=== PATIENT | female | born 1995 | race Caucasian/White ===

== ENCOUNTER → 2017-09-10 | Outpatient (CLI) | payer BC ==
--- NOTE | 2017-09-10 17:23 | REP ---
Thyroid sonography: History: Nodules on thyroid. Findings: Thyroid isthmus is 0.2 cm thick. Right lobe dimensions by ultrasound are 4.6 x 1.6 x 1.3 cm. The left thyroid lobe measures 4.0 x 1.5 x 0.8 cm. No extrathyroidal mass or cyst is seen. No intrathyroid nodule is seen. There are two tiny cysts in the upper pole on the left. These measure 1 mm. Impression: Negative thyroid sonography. Signed by Celso Jerez MD 09/10/2017 05:30 P
== END ==
LOC: M RAD 14:20
PROVIDERS: ATTEND Physician Assistant Medical
DX: E04.1 Nontoxic single thyroid nodule (principal)

== ENCOUNTER → 2018-11-29 | Outpatient (REF) | payer BC ==
[2018-11-29 15:21] LABS: CHLAMYDIA DNA AMPLIFICATION NEGATIVE (NEGATIVE); GC DNA AMPLIFICATION NEGATIVE (NEGATIVE)
== END ==
LOC: M SFHCWAGY 11:47
PROVIDERS: ATTEND Nurse Practitioner Women's Health
DX: Z12.4 Encounter for screening for malignant neoplasm of cervix (principal)
CPT/HCPCS: 87491; 87591; G0123

== ENCOUNTER → 2020-10-08 | Outpatient (REF) | payer BC | LOC: M SFHCWAGY 17:12 | PROVIDERS: ATTEND Nurse Practitioner Women's Health | DX: Z11.3 Encounter for screening for infections with a predominantly sexual mode of transmission (principal) ==

== ENCOUNTER → 2021-01-10 | Outpatient (REF) | payer BC | LOC: M LAB REF 12:38 | PROVIDERS: ATTEND Nurse Practitioner Family | DX: J02.9 Acute pharyngitis, unspecified (principal) ==